=== PATIENT | female | born 1975 | race Caucasian/White ===

== ENCOUNTER 2016-05-02 09:33 | Emergency (ER) | payer MEDICAID, OTHER ==
[~2016-05-02] VITALS: Ht 170.2 cm; Wt 110.2 kg
[2016-05-02 09:47] VITALS: BP 139/84
== END 2016-05-02 10:09 | disposition home or self-care (01) ==
LOC: ER 09:33
DX: F32.9 Major depressive disorder, single episode, unspecified (principal); F41.9 Anxiety disorder, unspecified; F17.210 Nicotine dependence, cigarettes, uncomplicated; Z76.0 Encounter for issue of repeat prescription; Z90.710 Acquired absence of both cervix and uterus; Z88.1 Allergy status to other antibiotic agents

== ENCOUNTER 2016-06-15 14:36 | Emergency (ER) | payer OTHER ==
[~2016-06-15] VITALS: Ht 170.2 cm; Wt 114.3 kg
[2016-06-15 14:50] VITALS: BP 134/86
[2016-06-15] MEDS ORDERED: methylPREDNISolone SOD SUCC 125 MG/2 ML VL IM ONE (16:15)
[2016-06-15] MEDS ORDERED: EPINEPHrine HCL 1 MG/1 ML AMP SC ONE (16:15)
[2016-06-15] MEDS ORDERED: diphenhdrAMINE HCL 50 MG/1 ML VL IM ONE (16:15)
== END 2016-06-15 17:00 | disposition home or self-care (01) ==
LOC: ER 14:36
DX: R21 Rash and other nonspecific skin eruption (principal); T78.1XXA Other adverse food reactions, not elsewhere classified, initial encounter; N39.0 Urinary tract infection, site not specified; F17.210 Nicotine dependence, cigarettes, uncomplicated; Z88.2 Allergy status to sulfonamides; X58.XXXA Exposure to other specified factors, initial encounter; Z90.710 Acquired absence of both cervix and uterus
CPT/HCPCS: 96372; 99284; J0171; J1200; J2930

== ENCOUNTER 2016-08-01 11:21 | Emergency (ER) | payer MEDICAID, OTHER ==
[~2016-08-01] VITALS: Ht 170.2 cm; Wt 111.1 kg
[2016-08-01 12:36] VITALS: BP 141/79
== END 2016-08-01 12:57 | disposition home or self-care (01) ==
LOC: ER 11:28
DX: N39.0 Urinary tract infection, site not specified (principal); J01.10 Acute frontal sinusitis, unspecified; F17.210 Nicotine dependence, cigarettes, uncomplicated

== ENCOUNTER 2016-09-03 08:39 | Emergency (ER) | payer MEDICAID ==
[~2016-09-03] VITALS: Ht 170.2 cm; Wt 111.1 kg
[2016-09-03 09:16] VITALS: BP 148/79
[2016-09-03 09:34] LABS: Urine Bilirubin Negative (Negative); Urine Blood Negative /uL (Negative); Urine Color Yellow (Yellow); Urine Glucose Normal (Normal); Urine Ketone Negative (Negative); Urine Nitrite Negative (Negative); Urine RBC 1 /hpf (0 - 4); Urine Squamous Epithelial Cell FEW /hpf (<5); Urine Urobilinogen Normal (Negative); Urine pH 5.5 (5.0-8.0)
== END 2016-09-03 10:12 | disposition home or self-care (01) ==
LOC: ER 08:40
DX: N39.0 Urinary tract infection, site not specified (principal); F17.210 Nicotine dependence, cigarettes, uncomplicated; Z90.710 Acquired absence of both cervix and uterus; Z88.2 Allergy status to sulfonamides
CPT/HCPCS: 81001

== ENCOUNTER 2017-03-05 11:12 | Emergency (ER) | payer MEDICAID ==
[~2017-03-05] VITALS: Ht 170.2 cm; Wt 113.9 kg
[2017-03-05 11:24] VITALS: BP 149/92
== END 2017-03-05 13:10 | disposition home or self-care (01) ==
LOC: ER 11:12
DX: F32.9 Major depressive disorder, single episode, unspecified (principal); F41.9 Anxiety disorder, unspecified; F17.210 Nicotine dependence, cigarettes, uncomplicated; Z76.0 Encounter for issue of repeat prescription; Z83.3 Family history of diabetes mellitus; Z82.49 Family history of ischemic heart disease and other diseases of the circulatory system

== ENCOUNTER 2017-10-30 07:21 | Emergency (ER) | payer MEDICAID ==
[~2017-10-30] VITALS: Ht 170.2 cm; Wt 108.4 kg
[2017-10-30 07:35] VITALS: BP 147/94
== END 2017-10-30 09:36 | disposition left against medical advice (07) ==
LOC: ER 07:21
DX: F41.9 Anxiety disorder, unspecified (principal); F17.210 Nicotine dependence, cigarettes, uncomplicated; Z53.29 Procedure and treatment not carried out because of patient's decision for other reasons; Z88.2 Allergy status to sulfonamides; Z90.49 Acquired absence of other specified parts of digestive tract; Z90.710 Acquired absence of both cervix and uterus

== ENCOUNTER 2017-10-30 22:33 | Emergency (ER) | payer SELFPAY ==
[~2017-10-30] VITALS: Ht 170.2 cm; Wt 108.0 kg
[2017-10-30 22:58] VITALS: BP 146/88
== END 2017-10-31 03:15 | disposition left against medical advice (07) ==
LOC: ER 22:35
DX: Z76.0 Encounter for issue of repeat prescription (principal); Z53.21 Procedure and treatment not carried out due to patient leaving prior to being seen by health care provider

== ENCOUNTER 2017-11-01 14:55 | Emergency (ER) | payer MEDICAID ==
[~2017-11-01] VITALS: Ht 170.2 cm; Wt 108.4 kg
[2017-11-01 15:30] VITALS: BP 148/99
== END 2017-11-01 17:21 | disposition home or self-care (01) ==
LOC: ER 15:04
DX: F41.9 Anxiety disorder, unspecified (principal); F32.9 Major depressive disorder, single episode, unspecified; F17.210 Nicotine dependence, cigarettes, uncomplicated; Z90.710 Acquired absence of both cervix and uterus; Z90.49 Acquired absence of other specified parts of digestive tract; Z88.2 Allergy status to sulfonamides; Z76.0 Encounter for issue of repeat prescription

== ENCOUNTER 2017-11-12 12:38 | Emergency (ER) | payer MEDICAID ==
[~2017-11-12] VITALS: Ht 170.2 cm; Wt 49.0 kg
[2017-11-12 13:48] VITALS: BP 143/75
[2017-11-12] MEDS ORDERED: KETOROLAC TROMETH 60MG/2ML VIAL IM ONE (14:15)
== END 2017-11-12 15:00 | disposition home or self-care (01) ==
LOC: ER 12:38 → EDBD 12:38 → ER 14:58
DX: G44.209 Tension-type headache, unspecified, not intractable (principal); F17.210 Nicotine dependence, cigarettes, uncomplicated; R42 Dizziness and giddiness; Z90.710 Acquired absence of both cervix and uterus; Z90.49 Acquired absence of other specified parts of digestive tract; Z87.440 Personal history of urinary (tract) infections
CPT/HCPCS: 70450; 72125; 81025; 82962; 96372; 99284; J1885